=== PATIENT | female | born 1995 | race Caucasian/White ===

== ENCOUNTER → 2017-03-05 | Outpatient (CLI) | payer BC ==
[~2017-03-05] VITALS: Ht 160 cm; Wt 79.4 kg
[~2017-03-05] MED LIST: FLAGYL500 MG PO; LEVSIN0.125 MG PO; OMEPRAZOLE20 MG PO; PRENATAL TABLE1 EAC3 PO; PROMETHAZINE HC25 M1 PO; TUMS500 MG PO; WELLBUTRIN100 MG PO; ZOFRAN ODT4 MG PO; ZOFRAN4 MG PO
== END | disposition home or self-care (01) ==
LOC: AMB 09:00
PROC: 0DBE8ZX Excision of Large Intestine, Via Natural or Artificial Opening Endoscopic, Diagnostic (ICD-10-PCS; principal; 2017-03-05)
DX: K58.0 Irritable bowel syndrome with diarrhea (principal); R10.30 Lower abdominal pain, unspecified; R63.4 Abnormal weight loss; R11.2 Nausea with vomiting, unspecified; F41.9 Anxiety disorder, unspecified; F17.210 Nicotine dependence, cigarettes, uncomplicated; F31.9 Bipolar disorder, unspecified; F60.3 Borderline personality disorder; D47.3 Essential (hemorrhagic) thrombocythemia; J30.2 Other seasonal allergic rhinitis; Z81.1 Family history of alcohol abuse and dependence; Z83.49 Family history of other endocrine, nutritional and metabolic diseases; Z83.3 Family history of diabetes mellitus; Z88.2 Allergy status to sulfonamides
CPT/HCPCS: 88305; J2250